=== PATIENT | female | born 1985 | race Caucasian/White ===

== ENCOUNTER 2020-12-11 14:35 | Emergency (ER) | payer SELFPAY ==
[2020-12-11 14:45] VITALS: BP 123/81; PULSE 87; RESP 18; TEMP 36.6; O2SAT 99
[2020-12-11 14:47] VITALS: BP 123/81; PULSE 87; RESP 18; TEMP 36.6; O2SAT 99
--- NOTE | 2020-12-11 14:55 | ED.HA ---
HPI - Headache General Chief Complaint: Headache Stated Complaint: sinus infection Time Seen by Provider: 12/11/20 14:55 Source: patient Mode of arrival: ambulatory Limitations: no limitations History of Present Illness HPI Narrative: Mitali Lockett is a 35 yo female with a history of sinusitis [facility] complaints of a headache that she believes is related to sinuses as she went [place] the [place] park with her daughters yesterday child says that when she is in the water like that she tends to get ill-complaining of pressure in her sinuses and is not responsive to Tylenol Patient has not been vaccinated against Covid Related Data Home Medications Medication Instructions Recorded Confirmed Chew-vites/Iron 12/11/20 Allergies Allergy/AdvReac Type Severity Reaction Status Date / Time No Known Allergies Allergy Verified 12/11/20 14:45 Review of Systems Review of Systems: CONSTITUTIONAL: Denies fever, chills, sweats. Has headache EYES: Denies visual changes, redness, discharge. ENT: Denies rhinorrhea, has congestion, sore throat, otalgia. CARDIOVASCULAR: Denies chest pain, palpitations, edema. RESPIRATORY: Denies dyspnea, wheezing, cough GASTROINTESTINAL: Denies abdominal pain, nausea, vomiting, diarrhea. GENITOURINARY: Denies dysuria, hematuria, abnormal discharge SKIN: Denies rash or itching. NEUROLOGIC: Denies numbness, or focal weakness. PSYCHIATRIC: Denies anxiety or depression. [facility] Past Medical History Medical History Chronic sinusitis Family History Family History Other Hypertension Social History Social History (Updated 12/11/20 @ 15:01 by Sheri Nascimento CNP) Smoking status: Never smoker Alcohol intake: never Comments At time of signature, I agree with nursing past medical, surgical, social and family history. There is no relevant family history pertinent to the presenting complaint. Exam Narrative: GENERAL: This is a well-nourished, well-developed patient, in mild distress. HEAD: normocephalic, atraumatic. EYES: Sclera clear/white. Vision is grossly intact. EARS: External ears normal, auditory canals clear and without drainage, TMs have fluid behind them with no perforation. Hearing grossly intact. NOSE: External nose normal without nasal discharge, nares with redness, has rhinorrhea. THROAT: Mucous membranes moist, posterior pharynx mild erythema NECK: Neck supple, non-tender CARDIOVASCULAR: Regular rate and rhythm without murmurs, gallops, or rubs. RESPIRATORY: Clear to auscultation. Breath sounds equal bilaterally. No wheezes, rales, or rhonchi. GASTROINTESTINAL: Abdomen soft, non-tender, SKIN: warm, intact with no suspicious lesions or rash, good texture and turgor. NEURO: awake, alert, and oriented to person, place and time. There were no obvious focal neurologic abnormalities. Steady gait EXTREMITIES: Normal range of motion. BACK: Nontender without deformity Course Course Emergency Course: Patient here with complaints of headache and pressure from sinuses with that started yesterday Started on amoxicillin 875 twice daily and Flonase and [id number] with PCP Vital Signs Vital signs: Vital Signs Temperature 97.9 F 12/11/20 14:45 Pulse Rate 87 12/11/20 14:45 Respiratory Rate 18 12/11/20 14:45 Blood Pressure 123/81 12/11/20 14:45 Pulse Oximetry 99 12/11/20 14:45 Temperature 97.9 F 12/11/20 14:47 Pulse Rate 87 12/11/20 14:47 Respiratory Rate 18 12/11/20 14:47 Blood Pressure 123/81 12/11/20 14:47 Pulse Oximetry 99 12/11/20 14:47 MDM - Headache Differential Diagnosis Differential diagnosis: Likely migraine, tension headache, headache, sinusitis and other Critical Care Time Critical Care Time Critical Care Time: No Discharge Plan Discharge Clinical Impression: Sinusitis Qualifiers: Sinusi
== END 2020-12-11 15:11 | disposition home or self-care (01) ==
PROVIDERS: Emergency Provider Nurse Practitioner
DX: J01.11 Acute recurrent frontal sinusitis (principal)
CPT/HCPCS: 99203; G0463